=== PATIENT | male | born 1995 | race Two or more races ===

== ENCOUNTER 2022-04-09 21:50 | Emergency (ER) | payer SELFPAY ==
[~2022-04-09] VITALS: Ht 162.6 cm; Wt 89.0 kg
[2022-04-09] MEDS ORDERED: KETOROLAC TROMETH 60MG/2ML VIAL IM ONE (23:45)
[2022-04-10 00:35] VITALS: BP 128/83
== END 2022-04-10 00:51 | disposition home or self-care (01) ==
LOC: ER 21:50
DX: G44.009 Cluster headache syndrome, unspecified, not intractable (principal)
CPT/HCPCS: 96372; 99283; J1885